=== PATIENT | female | born 1965 | race Caucasian/White ===

== ENCOUNTER → 2018-08-13 | Outpatient (CLI) | payer OTHER ==
[~2018-08-13] MED LIST: Aspirin EC81 MG PO; Flonase 0.05% N16 GM; IBUP600 PO; LORCET 5-325 M1 EACH PO; Multivitamin W1 EAC5; Norco 5-325 Ta1 EACH PO; TROSPIUM CHLORI20 MG PO; Zanaflex4 MG PO
[2018-08-13 13:05] LABS: Bilirubin, Urine Neg (Neg); Blood, Urine 1+ (Neg); Glucose Qualitative, Urine Neg (Neg); Ketones, Urine Neg (Neg); Leukocyte Esterase, Urine 3+ (Neg); Nitrite, Urine Neg (Neg); Protein, Urine 1+ (Neg); Urobilinogen, Urine NORM (Normal)
[2018-08-13 14:52] LABS: Appearance, Urine Cloudy (Clear); Color, Urine Yellow (P-Yellow)
[2018-08-13 14:59] LABS: Bacteria Mod /hpf; Red Blood Cells, Urine 0-2 /hpf (0-2); Squamous Epithelial Cells Rare /hpf (Few)
== END ==
LOC: LAB SHORT 12:57 → LAB 12:57
PROVIDERS: Nurse Practitioner Family
DX: N39.0 Urinary tract infection, site not specified (principal)
CPT/HCPCS: 81001; 87077; 87086; 87186

== ENCOUNTER 2018-10-09 15:49 | Emergency (ER) | payer OTHER ==
[~2018-10-09] VITALS: Ht 170.2 cm; Wt 83.9 kg
[2018-10-09] MEDS ORDERED: Norco 5-325 Ta1 EACH PO (19:41)
== END 2018-10-09 19:56 | disposition home or self-care (01) ==
LOC: ER 15:49
DX: S30.0XXA Contusion of lower back and pelvis, initial encounter (principal); W17.89XA Other fall from one level to another, initial encounter
CPT/HCPCS: 72100; 72220; 96372; 99283-25; A9270; J1170

== ENCOUNTER 2018-11-14 08:10 | Observation (INO) | payer OTHER ==
[~2018-11-14] VITALS: Ht 170.2 cm; Wt 100.0 kg
[~2018-11-14 08:10] MED LIST changes: -Aspirin EC81 MG PO; -Flonase 0.05% N16 GM; -IBUP600 PO; -LORCET 5-325 M1 EACH PO; -Multivitamin W1 EAC5; -TROSPIUM CHLORI20 MG PO; -Zanaflex4 MG PO
[2018-11-14] MEDS ORDERED: IBUP600 PO (08:23)
[2018-11-14] MEDS ORDERED: Multivitamin W1 EAC5 (08:24)
[2018-11-14 08:57] LABS: BASOPHILS ABSOLUTE AUTO 0.04 K/mm3 (0.00-0.23); BASOPHILS PERCENT AUTO 1 % (0-2); EOSINOPHILS ABSOLUTE AUTO 0.19 K/mm3 (0.00-0.68); EOSINOPHILS PERCENT AUTO 4 % (0-6); Hemoglobin 12.2 g/dL (11.5-16.0); IMMATURE GRAN ABSOLUTE AUTO 0.01 K/mm3 (0.00-0.10); IMMATURE GRAN PERCENT AUTO 0 % (0-1); LYMPHOCYTES ABSOLUTE AUTO 1.36 K/mm3 (0.84-5.20); LYMPHOCYTES PERCENT AUTO 27 % (21-46); MONOCYTES ABSOLUTE AUTO 0.58 K/mm3 (0.16-1.47); MONOCYTES PERCENT AUTO 12 % (4-13); Mean Corpuscular HGB 28.5 pg (26.0-34.0); Mean Corpuscular HGB Conc 32.1 g/dL (31.5-36.5); Mean Corpuscular Volume 89 fL (80-100); Mean Platelet Volume 9.6 fL (9.1-12.4); NEUTROPHILS ABSOLUTE AUTO 2.85 K/mm3 (1.96-9.15); NEUTROPHILS PERCENT AUTO 57 % (41-73); Platelet Count 195 K/mm3 (150-400); RDW Coefficient Variation 12.5 % (11.7-14.2); RDW Standard Deviation 40.6 fL (35.1-46.3); Red Blood Cell Count 4.28 M/mm3 (3.80-5.20); White Blood Cell Count 5.03 K/mm3 (4.00-11.30)
[2018-11-14 09:18] LABS: Alanine Aminotransfer (ALT/SGP 22 U/L (12-78); Albumin, Blood 3.5 g/dL (3.4-5.0); Albumin/Globulin Ratio 1.2 (0.8-1.8); Alk Phos 69 U/L (50-136); Anion Gap 6 mmol/L (6-16); Aspartate Aminotrans (AST/SGOT 20 U/L (12-37); Bilirubin, Total 0.3 mg/dL (0.1-1.0); Blood Urea Nitrogen 18 mg/dL (8-24); Bun/Creatinine Ratio 26.1 (12.0-20.0); CO2, Blood 25 mmol/L (21-32); Calcium, Blood 8.5 mg/dL (8.5-10.1); Chloride, Blood 112 mmol/L (98-108); Creatinine, Blood 0.69 mg/dL (0.40-1.00); Glomerular Filtration Rate >60 (60-); Glucose, Blood 91 mg/dL (70-99); Potassium, Blood 4.2 mmol/L (3.5-5.5); Sodium, Blood 143 mmol/L (136-145); Total Protein, Blood 6.5 g/dL (6.4-8.2); Troponin I <0.015 ng/mL (0.000-0.040)
[2018-11-14] MEDS ORDERED: TROSPIUM CHLORI20 MG PO (11:44)
[2018-11-14] MEDS ORDERED: Zanaflex4 MG PO (11:45)
[2018-11-14] MEDS ORDERED: LORCET 5-325 M1 EACH PO (11:46)
[2018-11-14] MEDS ORDERED: Aspirin EC81 MG PO (11:46)
--- NOTE | 2018-11-14 13:19 | NUR ---
ADMIT PT REPORT RECIEVED FROM KAMRON SOLORZANO IN ER. PT ARRIVED VIA GURNEY ACCOMPANIED BY FAMILY. PT ALERT, SMILING. STILL COMPLAINING OF LEFT JAW PAIN. HER ARM AND CHEST PAIN HAVE RESOLVED AFTER NITROGLYCERIN BUT HER JAW PAIN THAT WRAPS AROUND HER EAR HASN'T RESOLVED YET. PT HAS A BRUISED TAIL BONE FROM A FALL. TOOK AN EGG CRATE AND DOUBLED IT OVER FOR HER. WRAPPED THAT FOAM PAD IN A FITTED SHEET. SHE LIKED IT ALOT. MEDICATED WITH NORCO X1. PT TAKED NORCO AT HOME. PROVIDED PT WITH CRACKERS AND CHEESE FOR A SNACK WHILE AWAITING A LUNCH. CONTINUE POT.
--- NOTE | 2018-11-14 14:06 | NUR ---
ECHOCARDIOGRAM COMPLETE
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
--- NOTE | 2018-11-15 05:24 | NUR ---
SHIFT SUMMARY PATIENT PLEASENT AND COOPERATIVE THROUGHOUT THE NIGHT. PATIENT MEDICATED FOR TAIL BONE, BACK OF LEFT SHOULDER, AND HEADACHE PAIN PER EMAR. HEATING PAD USED FOR PAIN RELIEF WELL. NO COMPLAINTS OF JAW PAIN NOTED THROUGHOUT THE NIGHT. PATIENT SBA THROUGHOUT THE NIGHT. PATIENT APPEARED TO SLEEP WELL LAST NIGHT. PATIENT CURRENTLY AWAKE AND RESTING IN BED BUT DENIES ANY NEEDS. WILL CONTINUE TO MONITOR PATIENT AND REPORT TO ONCOMING RN.
--- NOTE | 2018-11-15 12:37 | NUR ---
NOTE PT UP WALKING IN THE HALLWAY. SR. NO JAW AND LEFT ARM PAIN TODAY. KPAD EFFECTIVE FOR PAIN CONTROL. 2 DAY STRESS TEST ARRANGED. NPO UNTIL 1430. PICTURES AT 1600 TODAY. PT AGREEABLE TO TEST. HERE. TALKED WITH PT/ ABOUT ECHO RESULTS, STRESS MANAGEMENT. PT YELLING AT PT BEHIND CLOSED DOOR THAT SHE NEEDS TO DESTRESS. CARE MANAGEMENT HAS MET WITH PT ALONG WITH [employer] THIS MORNING. CONTINUE POT.
--- NOTE | 2018-11-15 12:40 | NUR ---
Upon receiving a spiritual care referral, I visited patient. Patient openly shares about the many stressors in her life. Patient lives with a high level of demand and chaos that fills her life. We went down the list of healthy activities that fill and refresh her life and discussed the importance of prioritizing margin in her schedule to make room for these activities. We also talk about ways to cut out a certain amount of the demand. I encouraged self-care and encouraged getting back to the spiritual component that has had value to her in the past. Patient responded well and showed signs of reduced stress and voiced appreciation for my visit.
--- NOTE | 2018-11-15 17:48 | NUR ---
EVENING NOTE PT ALERT AND ORIENTED. SR. PT HAS DENIED JAW PAIN, LEFT ARM BACK OR UPPER BACK PAIN. SHE HAS HAD NAUSEA AFTER EATING WHICH, ACCORDING TO HER, IS A FREQUENT OCCURANCE AT HOME. ZOFRAN EFFECTIVE. VSS. TOLERATED THE STRESS TEST TODAY WELL. COFFEE RELIEVED HER HEADACHE. PT AWARE OF NOT BEING ABLE TO DRINK ANY CAFFEINE CONTAINING ITEMS AFTER 0200 D/T THE NEXT PART OF THE STRESS. H/L. RA. PT TOOK A SHOWER. NO RETURN OF HER PAIN. CONTINUE POT.
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
--- NOTE | 2018-11-16 18:30 | NUR ---
SHIFT SUMMARY PT A&Ox4, CALM AND COOPERATIVE WITH CARE. PT RESTING IN BED DURING SHIFT. UP IND IN ROOM AND WALKING IN HALLS WITH FAMILY. PT REPORTS NO PAIN T/O SHIFT, DENIES SOB. SPO02 >94% ON RA. PT REPROTS [place] AFTER LUNCH, MEDICATED x1 WITH ZOFRAN WITH POSITIVE RESULTS. SECOND PART OF STRESS TEST COMPLETED DURING SHIFT, PT REPORTS HEAVINESS IN CHEST AND SLIGHT SOB WITH MEDICATIONS. ABNORMAL STRESS TEST RESULTS, CARDIOLOGY CONSULTS FOR TOMORROW AM. PT BECAME TEARFUL AFTER DR SUTTON GAVE RESULTS OF STRESS TEST. THERAPUTIC LISTEN AND COMMUNICATION USED. VSS. NO OTHER ACUTE CHANGES NOTED DURING SHIFT. WILL CONTINUE TO MONITOR UNTIL REPORT GIVEN TO ONCOMING RN.
--- NOTE | 2018-11-17 05:45 | NUR ---
PATIENT DENIES ANY CHEST PAIN THROUGH NIGHT. PATIENT COMPLAINS OF A BROKEN TAIL BONE THAT IS PAINFUL, MEDICATED TWICE WITH PRN NORCO. PATIENT INDEPENDENT IN ROOM. PATIENT CALL LIGHT WITH IN REACH AND USES APPROPRIATELY.
[2018-11-17] MEDS ORDERED: Flonase 0.05% N16 GM (10:06)
--- NOTE | 2018-11-17 10:58 | NUR ---
DISCHARGE SUMMARY PT A&Ox4. CALM AND COOPERATIVE WITH CARE. PT RESTING IN BED DURING SHIFT. IND IN ROOM. PT REPORT BUTTOCKS PAIN, MEDICATED x1 WITH NORCO WITH POSITIVE RESULTS. PT DENIES JAW, NECK AND CHEST PAIN/PRESSURE T/O SHIFT. PT DENIES SOB, SPO2 >94% ON RA, BREATHING EVEN AND UNLABORED. PT REPROTS NAUSEA AFTER BREAKFAST, MEDICATED x1 WITH ZOFRAN, NO EMESIS NOTED. TELE SR IN 60-70'S. DR TANNER TO BEDSIDE THIS AM. VSS. NO OTHER ACUTE CHANGES NOTED DURING SHIFT. PT AND FAMILY EDUCATED ON DISCHARGE INSTRUCTIONS, MEDICATIONS AND FOLLOW UP APPOINTMENT. ATTEMPTED TO MAKE APPOINTMENT WITH PCP OFFICE, NOTIFIED PT TO CALL LATER TODAY. CARDIOLOGY APPT SET UP. NO NEW PRESCRIPTIONS MEDICATIONS. PT LEFT ROOM ON FOOT AT 1038, PT STABLE UPON DISCHARGE. FAMILY AND PT EDUCATED ON STRESS, AND STRESS MANAGEMENT.
== END 2018-11-17 10:40 | disposition home or self-care (01) ==
LOC: ER 08:10 → PCU 08:11
PROVIDERS: Emergency Medicine; ADMIT Internal Medicine
DX: I20.0 Unstable angina (principal); E11.9 Type 2 diabetes mellitus without complications; M19.90 Unspecified osteoarthritis, unspecified site; S39.92XD Unspecified injury of lower back, subsequent encounter; J31.0 Chronic rhinitis; E66.9 Obesity, unspecified; Z79.899 Other long term (current) drug therapy; Z79.82 Long term (current) use of aspirin; Z79.891 Long term (current) use of opiate analgesic; Z68.26 Body mass index [BMI] 26.0-26.9, adult
CPT/HCPCS: 36415; 71046; 78452; 80053; 83690; 83880; 84484; 85025; 93005; 93010; 93017; 93306; 96372; 96374; 96376; 99284-25; A9270-GY; A9500; G0378; J0706; J1650; J2405; J2785; J7512

== ENCOUNTER 2019-01-07 06:47 | Day surgery (SDC) | payer OTHER ==
[~2019-01-07] VITALS: Ht 167.6 cm; Wt 95.0 kg
[~2019-01-07 06:47] MED LIST changes: +Aspirin EC81 MG PO; +Flonase 0.05% N16 GM; +IBUP600 PO; +LORCET 5-325 M1 EACH PO; +Multivitamin W1 EAC5; +TROSPIUM CHLORI20 MG PO; +Zanaflex4 MG PO
[2019-01-07] MEDS ORDERED: ESCI10 PO (07:38)
--- NOTE | 2019-01-07 08:44 | NUR ---
PT RETURNED TO RECOVERY ROOM IN RECLINER. RIGHT RADIAL TR BAND SITE SOFT NON-TENDER WITH NO HEMATOMA AND NO PULSATILE BLEEDING. PT DENIES CP. PT DRINKING COFFEE. CALL LIGHT IN REACH. PT'S FAMILY IN ROOM.
--- NOTE | 2019-01-07 09:58 | NUR ---
PT C/O 07/02 RIGHT WRIST SORENESS.
--- NOTE | 2019-01-07 10:43 | NUR ---
5 CC OF AIR REMOVED FROM RIGHT TR BAND; REBLEED NOTED AND 2CC OF AIR PLACED BACK INTO BAND TO STOP BLEEDING. PT AMBULATED TO BR TO VOID.
--- NOTE | 2019-01-07 10:46 | NUR ---
DISCHARGE INSTRUCTIONS REVIEWED ALL QUESTIONS ANSWERED.
--- NOTE | 2019-01-07 11:08 | NUR ---
7 CC OF AIR REMOVED OVER 10 MIN FROM NOW DELFATED RIGHT TR BAND. NO PULSATILE BLEEDING AND NO HEMATOMA.
--- NOTE | 2019-01-07 12:02 | NUR ---
DEFLATED RIGHT RADIAL TR BAND REMOVED AND POLYMEM PLACED OVER RIGHT RADIAL SITE; RIGHT RADIAL SITE SOFT WITH NO HEMATOMA AND NO PULSATILE BLEEDING. RIGHT WRIST BOARD PLACED. PT AMBULATED TO BR TO VOID. 20 G IV REMOVED FROM LEFT HAND WITH INTACT CANNUAL. RIGHT ARM SLING PLACED. PT ESCORTED OUT VIA WHEELCHAIR ESCORT.
== END 2019-01-07 12:25 | disposition home or self-care (01) ==
LOC: MHTC 06:47
PROC: 4A023N7 Measurement of Cardiac Sampling and Pressure, Left Heart, Percutaneous Approach (ICD-10-PCS; principal; 2019-01-07)
PROC: B201YZZ Plain Radiography of Multiple Coronary Arteries using Other Contrast (ICD-10-PCS; principal; 2019-01-07)
PROC: B205YZZ Plain Radiography of Left Heart using Other Contrast (ICD-10-PCS; principal; 2019-01-07)
DX: R07.9 Chest pain, unspecified (principal); R06.09 Other forms of dyspnea; R00.2 Palpitations; R94.39 Abnormal result of other cardiovascular function study; E11.9 Type 2 diabetes mellitus without complications; G89.29 Other chronic pain; I87.2 Venous insufficiency (chronic) (peripheral); G43.909 Migraine, unspecified, not intractable, without status migrainosus; F32.9 Major depressive disorder, single episode, unspecified; F41.9 Anxiety disorder, unspecified; R03.0 Elevated blood-pressure reading, without diagnosis of hypertension; R32 Unspecified urinary incontinence; J31.0 Chronic rhinitis; Z87.891 Personal history of nicotine dependence; Z79.899 Other long term (current) drug therapy; Z79.82 Long term (current) use of aspirin
CPT/HCPCS: 93458; 99152; 99153; A9270; C1769; C1894; J1644; J2250; J3010; J7030; Q9967

== ENCOUNTER 2019-02-09 09:45 | Day surgery (SDC) | payer OTHER ==
[~2019-02-09 09:45] MED LIST changes: +ESCI10 PO
== END 2019-02-09 22:49 | disposition home or self-care (01) ==
LOC: MOI MAM 09:45
DX: D05.12 Intraductal carcinoma in situ of left breast (principal)
CPT/HCPCS: 19081; 88305

== ENCOUNTER 2019-03-16 08:43 | Day surgery (SDC) | payer OTHER | END 2019-03-16 22:35 | disposition home or self-care (01) | LOC: MOI MAM 08:43 | DX: D05.12 Intraductal carcinoma in situ of left breast (principal) | CPT/HCPCS: 19281 ==

== ENCOUNTER → 2019-08-09 | Outpatient (CLI) | payer OTHER | END | disposition home or self-care (01) | LOC: LAB SHORT 12:51 → LAB UCHC 12:51 | DX: R35.0 Frequency of micturition (principal) | CPT/HCPCS: 87077; 87086; 87186 ==

== ENCOUNTER → 2019-09-15 | Outpatient (CLI) | payer OTHER ==
[2019-09-15 11:37] LABS: Appearance, Urine Clear (Clear); Bilirubin, Urine Neg (Neg); Blood, Urine Neg (Neg); Color, Urine Yellow (P-Yellow); Glucose Qualitative, Urine Neg (Neg); Ketones, Urine Neg (Neg); Leukocyte Esterase, Urine Neg (Neg); Nitrite, Urine Neg (Neg); Protein, Urine Neg (Neg); Urobilinogen, Urine NORM (Normal)
== END ==
LOC: LAB FUT 09-09 11:50 → LAB SHORT 10:52 → LAB 10:52
PROVIDERS: Obstetrics & Gynecology Female Pelvic Medicine and Reconstructive Surgery
DX: N39.0 Urinary tract infection, site not specified (principal)
CPT/HCPCS: 81003; 87086

== ENCOUNTER 2019-11-02 02:13 | Emergency (ER) | payer OTHER ==
[~2019-11-02] VITALS: Ht 167.6 cm; Wt 90.7 kg
[2019-11-02 03:44] LABS: BASOPHILS ABSOLUTE AUTO 0.05 K/mm3 (0.00-0.23); BASOPHILS PERCENT AUTO 0 % (0-2); EOSINOPHILS ABSOLUTE AUTO 0.19 K/mm3 (0.00-0.68); EOSINOPHILS PERCENT AUTO 2 % (0-6); Hematocrit 42.1 % (33.0-51.0); Hemoglobin 13.3 g/dL (11.5-16.0); IMMATURE GRAN ABSOLUTE AUTO 0.05 K/mm3 (0.00-0.10); IMMATURE GRAN PERCENT AUTO 0 % (0-1); LYMPHOCYTES ABSOLUTE AUTO 1.25 K/mm3 (0.84-5.20); LYMPHOCYTES PERCENT AUTO 11 % (21-46); MONOCYTES ABSOLUTE AUTO 0.83 K/mm3 (0.16-1.47); MONOCYTES PERCENT AUTO 7 % (4-13); Mean Corpuscular HGB 27.9 pg (26.0-34.0); Mean Corpuscular HGB Conc 31.6 g/dL (31.5-36.5); Mean Corpuscular Volume 88 fL (80-100); Mean Platelet Volume 9.4 fL (9.1-12.4); NEUTROPHILS PERCENT AUTO 80 % (41-73); Platelet Count 263 K/mm3 (150-400); RDW Standard Deviation 42.4 fL (35.1-46.3); Red Blood Cell Count 4.77 M/mm3 (3.80-5.20); White Blood Cell Count 11.67 K/mm3 (4.00-11.30)
[2019-11-02 04:03] LABS: Alanine Aminotransfer (ALT/SGP 34 U/L (12-78); Albumin, Blood 3.9 g/dL (3.4-5.0); Alk Phos 101 U/L (50-136); Anion Gap 7 mmol/L (6-16); Aspartate Aminotrans (AST/SGOT 30 U/L (12-37); Bilirubin, Total 0.3 mg/dL (0.1-1.0); Blood Urea Nitrogen 14 mg/dL (8-24); Bun/Creatinine Ratio 16.1 (12.0-20.0); CO2, Blood 24 mmol/L (21-32); Calcium, Blood 9.6 mg/dL (8.5-10.1); Chloride, Blood 111 mmol/L (98-108); Creatinine, Blood 0.87 mg/dL (0.40-1.00); Globulin, Blood 3.9 g/dL (2.2-4.0); Glomerular Filtration Rate >60 (60-); Glucose, Blood 149 mg/dL (70-99); Potassium, Blood 3.8 mmol/L (3.5-5.5); Sodium, Blood 142 mmol/L (136-145); Total Protein, Blood 7.8 g/dL (6.4-8.2)
[2019-11-02] MEDS ORDERED: LETR2.5 PO (06:12)
[2019-11-02 06:13] LABS: Troponin I <0.015 ng/mL (0.000-0.040)
[2019-11-02] MEDS ORDERED: ONDA4ODT MM (07:59)
== END 2019-11-02 08:15 | disposition home or self-care (01) ==
LOC: ER 02:13
PROVIDERS: Student in an Organized Health Care Education/Training Program
DX: R10.13 Epigastric pain (principal); R11.2 Nausea with vomiting, unspecified; R19.7 Diarrhea, unspecified; Z87.19 Personal history of other diseases of the digestive system; Z79.899 Other long term (current) drug therapy
CPT/HCPCS: 36415; 74177; 80053; 83690; 84484; 85025; 93005; 93010; 96361; 96374-59; 99284-25; J2405; J7030; Q9967

== ENCOUNTER → 2020-03-13 | Outpatient (CLI) | payer OTHER ==
[~2020-03-13] MED LIST changes: +LETR2.5 PO; +ONDA4ODT MM
== END | disposition home or self-care (01) ==
LOC: LAB 16:30 → LAB SHORT 16:30
DX: N39.0 Urinary tract infection, site not specified (principal)
CPT/HCPCS: 87077; 87086; 87186

== ENCOUNTER 2021-03-07 10:11 | Emergency (ER) | payer OTHER ==
[~2021-03-07] VITALS: Ht 167.6 cm; Wt 86.2 kg
[2021-03-07 11:06] LABS: BASOPHILS ABSOLUTE AUTO 0.07 K/mm3 (0.00-0.23); BASOPHILS PERCENT AUTO 1 % (0-2); EOSINOPHILS ABSOLUTE AUTO 0.21 K/mm3 (0.00-0.68); EOSINOPHILS PERCENT AUTO 3 % (0-6); Hematocrit 39.8 % (33.0-51.0); Hemoglobin 12.4 g/dL (11.5-16.0); IMMATURE GRAN ABSOLUTE AUTO 0.02 K/mm3 (0.00-0.10); IMMATURE GRAN PERCENT AUTO 0 % (0-1); LYMPHOCYTES ABSOLUTE AUTO 2.02 K/mm3 (0.84-5.20); LYMPHOCYTES PERCENT AUTO 30 % (21-46); MONOCYTES ABSOLUTE AUTO 0.73 K/mm3 (0.16-1.47); MONOCYTES PERCENT AUTO 11 % (4-13); Mean Corpuscular HGB 27.7 pg (26.0-34.0); Mean Corpuscular HGB Conc 31.2 g/dL (31.5-36.5); Mean Corpuscular Volume 89 fL (80-100); Mean Platelet Volume 9.8 fL (9.1-12.4); NEUTROPHILS ABSOLUTE AUTO 3.64 K/mm3 (1.96-9.15); NEUTROPHILS PERCENT AUTO 55 % (41-73); Platelet Count 204 K/mm3 (150-400); RDW Coefficient Variation 13.4 % (11.7-14.2); RDW Standard Deviation 43.6 fL (35.1-46.3); Red Blood Cell Count 4.47 M/mm3 (3.80-5.20); White Blood Cell Count 6.69 K/mm3 (4.00-11.30)
[2021-03-07 11:25] LABS: Alanine Aminotransfer (ALT/SGP 47 U/L (12-78); Albumin, Blood 3.7 g/dL (3.4-5.0); Albumin/Globulin Ratio 1.2 (0.8-1.8); Alk Phos 90 U/L (50-136); Anion Gap 5 mmol/L (6-16); Aspartate Aminotrans (AST/SGOT 41 U/L (12-37); Bilirubin, Total 0.3 mg/dL (0.1-1.0); Blood Urea Nitrogen 16 mg/dL (8-24); Bun/Creatinine Ratio 21.7 (12.0-20.0); CO2, Blood 28 mmol/L (21-32); Calcium, Blood 8.5 mg/dL (8.5-10.1); Chloride, Blood 108 mmol/L (98-108); Creatinine, Blood 0.74 mg/dL (0.40-1.00); Glomerular Filtration Rate >60 (60-); Glucose, Blood 121 mg/dL (70-99); Potassium, Blood 3.9 mmol/L (3.5-5.5); Sodium, Blood 141 mmol/L (136-145); Total Protein, Blood 6.7 g/dL (6.4-8.2); Troponin I <0.015 ng/mL (0.000-0.040)
[2021-03-07] MEDS ORDERED: OXYB5ER (12:52)
[2021-03-07 13:36] LABS: Source, Urine Clean Catch
[2021-03-07 13:42] LABS: Appearance, Urine Hazy (Clear); Bilirubin, Urine Neg (Neg); Blood, Urine Neg (Neg); Color, Urine Yellow (P-Yellow); Glucose Qualitative, Urine Neg (Neg); Ketones, Urine Neg (Neg); Leukocyte Esterase, Urine Neg (Neg); Nitrite, Urine Neg (Neg); Protein, Urine Neg (Neg); Urobilinogen, Urine NORM (Normal)
[2021-03-07] MEDS ORDERED: LIDO700A20 TOP (13:50)
[2021-03-07 14:02] LABS: Bacteria Rare /hpf; Red Blood Cells, Urine 0-2 /hpf (0-2); Squamous Epithelial Cells Rare /hpf (Few); White Blood Cells, Urine 0-2 /hpf (0-5)
== END 2021-03-07 14:44 | disposition home or self-care (01) ==
LOC: ER 10:11
PROVIDERS: Physician Assistant
DX: S39.012A Strain of muscle, fascia and tendon of lower back, initial encounter (principal); R06.02 Shortness of breath; Z79.899 Other long term (current) drug therapy; X50.0XXA Overexertion from strenuous movement or load, initial encounter
CPT/HCPCS: 71046; 80053; 81001; 83690; 84484; 85025; 93005; 93010; 99284-25; A9270

== ENCOUNTER → 2022-01-14 | Outpatient (CLI) | payer OTHER ==
[~2022-01-14] MED LIST changes: +LIDO700A20 TOP; +OXYB5ER
== END | disposition home or self-care (01) ==
LOC: LAB SHORT 17:50 → LAB 17:50
DX: N39.0 Urinary tract infection, site not specified (principal)
CPT/HCPCS: 87086

== ENCOUNTER → 2022-01-31 | Outpatient (CLI) | payer OTHER | END | disposition home or self-care (01) | LOC: LAB 11:39 → LAB SHORT 11:39 | DX: R35.0 Frequency of micturition (principal) | CPT/HCPCS: 87077; 87086; 87186 ==

== ENCOUNTER → 2022-06-30 | Outpatient (CLI) | payer OTHER ==
[2022-06-30 16:01] LABS: Albumin, Blood 3.7 g/dL (3.4-5.0); Albumin/Globulin Ratio 1.4 (0.8-1.8); Bilirubin, Total 0.4 mg/dL (0.1-1.0); Bun/Creatinine Ratio 23.9 (12.0-20.0); Calcium, Blood 8.6 mg/dL (8.5-10.1); Creatinine, Blood 0.71 mg/dL (0.40-1.00); Globulin, Blood 2.7 g/dL (2.2-4.0); Percent Saturation 23.6 % (15.0-50.0); Phosphorus, Blood 4.3 mg/dL (2.5-4.9); Potassium, Blood 4.5 mmol/L (3.5-5.5); Thyroid Stimulating Hormone 1.9 uIU/mL (0.360-4.800); Thyroxine (T4) 8.3 ug/dL (4.8-13.9); Total Protein, Blood 6.4 g/dL (6.4-8.2)
== END | disposition home or self-care (01) ==
LOC: LAB 09:57 → LAB SHORT 09:57
PROVIDERS: Internal Medicine Hematology & Oncology
DX: E03.9 Hypothyroidism, unspecified (principal); D64.9 Anemia, unspecified; R73.03 Prediabetes
CPT/HCPCS: 80053; 82728; 83540; 83550; 84100; 84436; 84443

== ENCOUNTER → 2022-10-09 | Outpatient (CLI) | payer OTHER ==
[2022-10-09 15:00] LABS: Bun/Creatinine Ratio 21.9 (12.0-20.0); Creatinine, Blood 0.69 mg/dL (0.40-1.00); Potassium, Blood 4.3 mmol/L (3.5-5.5)
== END | disposition home or self-care (01) ==
LOC: LAB SHORT 12:31 → LAB 12:31
PROVIDERS: Nurse Practitioner Family
DX: I10 Essential (primary) hypertension (principal)
CPT/HCPCS: 80048

== ENCOUNTER → 2022-12-15 | Outpatient (CLI) | payer OTHER | END | disposition home or self-care (01) | LOC: LAB SHORT 12:09 → LAB 12:09 | DX: R35.0 Frequency of micturition (principal) | CPT/HCPCS: 87077; 87086; 87186 ==

== ENCOUNTER → 2022-12-31 | Outpatient (CLI) | payer OTHER ==
[2022-12-31 19:08] LABS: Albumin, Blood 3.9 g/dL (3.4-5.0); Albumin/Globulin Ratio 1.3 (0.8-1.8); Bilirubin, Total 0.3 mg/dL (0.1-1.0); Bun/Creatinine Ratio 18.7 (12.0-20.0); Calcium, Blood 9.3 mg/dL (8.5-10.1); Creatinine, Blood 0.7 mg/dL (0.40-1.00); Globulin, Blood 2.9 g/dL (2.2-4.0); Phosphorus, Blood 4.4 mg/dL (2.5-4.9); Potassium, Blood 4.5 mmol/L (3.5-5.5); Total Protein, Blood 6.8 g/dL (6.4-8.2)
== END | disposition home or self-care (01) ==
LOC: LAB 17:08 → LAB SHORT 17:08
PROVIDERS: Internal Medicine Hematology & Oncology
DX: C50.919 Malignant neoplasm of unspecified site of unspecified female breast (principal); D64.9 Anemia, unspecified; R73.03 Prediabetes
CPT/HCPCS: 80053; 84100; 86300

== ENCOUNTER 2023-01-20 17:20 | Emergency (ER) | payer OTHER ==
[~2023-01-20] VITALS: Ht 167.6 cm; Wt 90.7 kg
[2023-01-20 17:28] VITALS: BP 115/79
== END 2023-01-20 20:28 | disposition home or self-care (01) ==
LOC: ER 17:20
DX: S46.011A Strain of muscle(s) and tendon(s) of the rotator cuff of right shoulder, initial encounter (principal); W19.XXXA Unspecified fall, initial encounter; Z87.891 Personal history of nicotine dependence
CPT/HCPCS: 73030; 99283-25; A9270

== ENCOUNTER 2023-04-13 08:31 | Day surgery (SDC) | payer OTHER ==
[~2023-04-13] VITALS: Ht 167.6 cm; Wt 93.3 kg
[~2023-04-13 08:31] MED LIST changes: +Dexamethasone Sod Phos 10 MG/ML 1ML VIAL ONE; +EPINEPhrine HCl 1 MG/ML 1ML Amp ONE; +FentaNYL Citrate 50 MCG/ML 2 ML Injection ONE; +Midazolam HCl 1MG / ML 2ML Vial ONE; +Ondansetron HCl 2 MG / ML 2ML Vial ONE; +Rocuronium Bromide 10 MG/ML 5ML Injection IV ONE; +Ropivacaine 0.5% HCl/Pf 5 MG/ML 20ML VIAL ONE; +Sugammadex Sodium 200 MG/2ML SDV (100 MG/ML) ONE; +propofoL 20 ML IV ONE
[2023-04-13] MEDS ORDERED: Bupivacaine 0.5% HCl 5 MG/ML 30MLVIAL ONE (08:32)
[2023-04-13] MEDS ORDERED: Lidocaine HCl 4% 5 ML SDA ONE (08:49)
[2023-04-13] MEDS ORDERED: ALBU90OI (09:06)
[2023-04-13] MEDS ORDERED: AMLO10 (09:07)
[2023-04-13] MEDS ORDERED: Amitriptyline H10 MG (09:07)
[2023-04-13] MEDS ORDERED: Norco 10-325 T1 EACH (09:08)
[2023-04-13] MEDS ORDERED: SUMA25 (09:09)
[2023-04-13] MEDS ORDERED: LETR2.5 (09:09)
[2023-04-13] MEDS ORDERED: CefTRIAXone Sodium 2,000 MG in NS 100 ML IV SCH (09:10)
[2023-04-13] MEDS ORDERED: Inderal40 MG (09:10)
[2023-04-13] MEDS ORDERED: ONDA4 (09:12)
[2023-04-13] MEDS ORDERED: VENL37.5 (09:12)
[2023-04-13] MEDS ORDERED: Lactated Ringer's 1,000 ML IV ONE ×2 (09:30→09:56)
[2023-04-13] MEDS ORDERED: ePHEDrine Sulfate 50 MG/ML 1ML Injection ONE (10:45)
[2023-04-13] MEDS ORDERED: EPINEPhrine HCl 1 MG/ML IV XX ONE ×2 (10:46)
[2023-04-13] MEDS ORDERED: Glycopyrrolate 0.2 MG/ML 5ML VIAL ONE (10:50)
--- NOTE | 2023-04-13 10:56 | NUR ---
04/13/23 1056 Beatriz Bradford 1MG EPI ADDED TO FIRST BAG OF LR FOR IRRIGATION AT OPSITE. ROPIVACAINE 0.5% 10MLS MIXED AND VERIFIED WITH EPI 0.05ML (1MG/ML) TO MAKE ROPIVACAINE 0.5% W/ EPI 1:200,000 FOR INJECTION AT OPSITE.
[2023-04-13] MEDS ORDERED: FentaNYL Citrate 50 MCG/ML 2 ML Injection ONE (13:01)
[2023-04-13 13:34] VITALS: BP 128/99
[2023-04-13] MEDS ORDERED: OxyCODONE 5 mg/Acetamin 325 mg TABLET ONE (13:38)
== END 2023-04-13 14:19 | disposition home or self-care (01) ==
LOC: ORSCSDS 08:31
PROVIDERS: Orthopaedic Surgery
PROC: 0RNJ4ZZ Release Right Shoulder Joint, Percutaneous Endoscopic Approach (ICD-10-PCS; principal; 2023-04-13 10:00)
DX: M75.121 Complete rotator cuff tear or rupture of right shoulder, not specified as traumatic (principal); M75.41 Impingement syndrome of right shoulder; I10 Essential (primary) hypertension; J44.9 Chronic obstructive pulmonary disease, unspecified; F41.9 Anxiety disorder, unspecified; F32.A Depression, unspecified; Z79.899 Other long term (current) drug therapy; E66.9 Obesity, unspecified; Z68.33 Body mass index [BMI] 33.0-33.9, adult; Z87.891 Personal history of nicotine dependence
CPT/HCPCS: 82947; A9270; C1713; J0171; J0696; J1100; J2001; J2250; J2405; J2704; J2795; J3010; J7120

== ENCOUNTER → 2023-06-18 | Outpatient (CLI) | payer OTHER | END | disposition home or self-care (01) | LOC: LAB SHORT 14:03 → LAB 14:03 | DX: Z11.59 Encounter for screening for other viral diseases (principal); F32.9 Major depressive disorder, single episode, unspecified; I10 Essential (primary) hypertension ==

== ENCOUNTER 2023-11-24 18:15 | Emergency (ER) | payer OTHER ==
[~2023-11-24] VITALS: Ht 167.6 cm; Wt 90.7 kg
[~2023-11-24 18:15] MED LIST changes: +ALBU90OI; +AMLO10; +Amitriptyline H10 MG; -Dexamethasone Sod Phos 10 MG/ML 1ML VIAL ONE; -EPINEPhrine HCl 1 MG/ML 1ML Amp ONE; -FentaNYL Citrate 50 MCG/ML 2 ML Injection ONE; +Inderal40 MG; +LETR2.5; -Midazolam HCl 1MG / ML 2ML Vial ONE; +Norco 10-325 T1 EACH; +ONDA4; -Ondansetron HCl 2 MG / ML 2ML Vial ONE; -Rocuronium Bromide 10 MG/ML 5ML Injection IV ONE; -Ropivacaine 0.5% HCl/Pf 5 MG/ML 20ML VIAL ONE; +SUMA25; -Sugammadex Sodium 200 MG/2ML SDV (100 MG/ML) ONE; +VENL37.5; -propofoL 20 ML IV ONE
[2023-11-25 00:50] VITALS: BP 133/79
== END 2023-11-25 00:50 | disposition home or self-care (01) ==
LOC: ER 18:15
DX: S80.11XA Contusion of right lower leg, initial encounter (principal); X58.XXXA Exposure to other specified factors, initial encounter; Z79.899 Other long term (current) drug therapy
CPT/HCPCS: 93971; 99283-25

== ENCOUNTER → 2024-01-29 | Outpatient (CLI) | payer OTHER | LOC: LAB 13:46 → LAB SHORT 13:46 | DX: N39.0 Urinary tract infection, site not specified (principal) | CPT/HCPCS: 87077; 87086; 87186 ==

== ENCOUNTER 2024-05-02 07:53 | Day surgery (SDC) | payer OTHER ==
[2024-05-02] VITALS (16 sets, daily range): BP systolic 106–155; BP diastolic 67–117
[~2024-05-02] VITALS: Ht 170.2 cm; Wt 96.5 kg
[~2024-05-02 07:53] MED LIST changes: +DULO60 PO; +LISI10 PO; +Lactated Ringer's 1,000 ML IV SCH; -Norco 10-325 T1 EACH; +Norco 10-325 T1 EACH PO
--- NOTE | 2024-05-02 09:09 | NUR ---
History, Chart, Medications and Allergies reviewed before start of procedure. Lungs clear T/O to Auscultation. Patient confirms NPO status and agrees with scheduled surgery. Patient states colon prep results clear. Patient States Post-Procedure ride home has been arranged. Pre-Op teaching done. Pt verbalizes understanding.
[2024-05-02] MEDS ORDERED: propofoL 40 ML IV ONE (09:26)
--- NOTE | 2024-05-02 10:35 | NUR ---
Discharge instructions reviewed with patient. Patient verbalizes understanding. Copy given to patient to take home. Patient States Post-Procedure ride home has been arranged. Discharged via wheelchair to private car for ride home.
--- NOTE | 2024-05-03 13:14 | NUR ---
05/03/24 1314 Dominick Aranda CONFIRMED AND REVIEWED H&P, MEDCICATIONS, ALLERGIES, MEDICAL HISTORY, RESPIRATORY HISTORY, VITAL SIGNS, 3-LEAD EKG, CONSENTS, AND PHYSICIAN ORDERS. PATIENT CONFIRMS NPO STATUS AND AGREES WITH SCHEDULED PROCEDURE. MONITOR INTACT WITH CONTINUOUS PULSE OXIMETRY, CAPNOGRAPHY, 3-LEAD EKG, INTERMITTENT BP. SUPPLEMENTAL O2 TO BE TITRATED THROUGHOUT PROCEDURE TO MAINTAIN O2 SATURATION ABOVE 90%. PATIENT DETERMINED TO BE ASA APPROPRIATE FOR PROPOFOL SEDATION PRIOR TO START OF PROCEDURE BY DR. AMBRIZ
== END 2024-05-02 10:33 | disposition home or self-care (01) ==
LOC: ORSCMMR 07:53 → ORD 09:00 → ORSCMMR 10:33
PROVIDERS: Internal Medicine Gastroenterology
PROC: 0DJD8ZZ Inspection of Lower Intestinal Tract, Via Natural or Artificial Opening Endoscopic (ICD-10-PCS; principal; 2024-05-02 09:00)
DX: Z12.11 Encounter for screening for malignant neoplasm of colon (principal); Z86.0100 Personal history of colon polyps, unspecified; I10 Essential (primary) hypertension; F32.A Depression, unspecified; Z79.899 Other long term (current) drug therapy; Z85.3 Personal history of malignant neoplasm of breast; Z87.891 Personal history of nicotine dependence; E66.9 Obesity, unspecified; Z68.35 Body mass index [BMI] 35.0-35.9, adult
CPT/HCPCS: J2704; J7120

== ENCOUNTER 2024-05-31 12:12 | Emergency (ER) | payer OTHER ==
[~2024-05-31] VITALS: Ht 170.2 cm; Wt 90.7 kg
[~2024-05-31 12:12] MED LIST changes: -Lactated Ringer's 1,000 ML IV SCH
[2024-05-31 13:06] LABS: BASOPHILS ABSOLUTE AUTO 0.05 K/mm3 (0.00-0.23); BASOPHILS PERCENT AUTO 1 % (0-2); EOSINOPHILS PERCENT AUTO 4 % (0-6); Hematocrit 40.1 % (33.0-51.0); IMMATURE GRAN ABSOLUTE AUTO 0.03 K/mm3 (0.00-0.10); IMMATURE GRAN PERCENT AUTO 1 % (0-1); LYMPHOCYTES ABSOLUTE AUTO 1.37 K/mm3 (0.84-5.20); LYMPHOCYTES PERCENT AUTO 27 % (21-46); MONOCYTES ABSOLUTE AUTO 0.62 K/mm3 (0.16-1.47); MONOCYTES PERCENT AUTO 12 % (4-13); Mean Corpuscular HGB 29.2 pg (26.0-34.0); Mean Corpuscular HGB Conc 32.4 g/dL (31.5-36.5); Mean Corpuscular Volume 90 fL (80-100); Mean Platelet Volume 9.3 fL (9.1-12.4); NEUTROPHILS ABSOLUTE AUTO 2.75 K/mm3 (1.96-9.15); NEUTROPHILS PERCENT AUTO 55 % (41-73); Platelet Count 222 K/mm3 (150-400); RDW Coefficient Variation 12.8 % (11.7-14.2); RDW Standard Deviation 42.1 fL (35.1-46.3); Red Blood Cell Count 4.45 M/mm3 (3.80-5.20); White Blood Cell Count 5.02 K/mm3 (4.00-11.30)
[2024-05-31 13:37] VITALS: BP 115/86
[2024-05-31 13:42] LABS: Albumin, Blood 3.9 g/dL (3.4-5.0); Albumin/Globulin Ratio 1.4 (0.8-1.8); Bilirubin, Total 0.3 mg/dL (0.1-1.0); Bun/Creatinine Ratio 29.7 (12.0-20.0); Calcium, Blood 9.4 mg/dL (8.5-10.1); Creatinine, Blood 0.71 mg/dL (0.40-1.00); Globulin, Blood 2.7 g/dL (2.2-4.0); Potassium, Blood 4.3 mmol/L (3.5-5.5); Total Protein, Blood 6.6 g/dL (6.4-8.2)
[2024-05-31] MEDS ORDERED: Ketorolac Tromethamine 15mg Vial IV ONE (15:25)
[2024-05-31] MEDS ORDERED: OxyCODONE HCL 5 MG TAB PO ONE (15:25)
== END 2024-05-31 15:37 | disposition home or self-care (01) ==
LOC: ER 12:12
PROVIDERS: Physician Assistant
DX: S00.12XA Contusion of left eyelid and periocular area, initial encounter (principal); W11.XXXA Fall on and from ladder, initial encounter; Z79.899 Other long term (current) drug therapy
CPT/HCPCS: 70450; 80053; 85025; 96374; 99284-25; A9270; J1885

== ENCOUNTER → 2024-06-06 | Outpatient (CLI) | payer OTHER | LOC: LAB 10:42 → LAB SHORT 10:42 | DX: N39.0 Urinary tract infection, site not specified (principal) | CPT/HCPCS: 87077; 87086; 87186 ==

== ENCOUNTER 2024-08-29 06:09 | Day surgery (SDC) | payer OTHER ==
[~2024-08-29] VITALS: Ht 170.2 cm; Wt 96.0 kg
[2024-08-29] MEDS ORDERED: NS 1,000 ML IV ONE ×2 (06:29→07:00)
[2024-08-29] MEDS ORDERED: Tranexamic Acid 100 ML IV ONE ×2 (06:32→10:32)
[2024-08-29] MEDS ORDERED: Midazolam HCl 1MG / ML 2ML Vial ONE (06:40)
[2024-08-29] MEDS ORDERED: Ondansetron HCl 2 MG / ML 2ML Vial ONE ×2 (06:40→10:23)
[2024-08-29] MEDS ORDERED: Dexamethasone Sod Phos 10 MG/ML 1ML VIAL ONE (06:40)
[2024-08-29] MEDS ORDERED: Bupivacaine 0.5% HCl 5 MG/ML 30MLVIAL ONE (06:40)
[2024-08-29] MEDS ORDERED: FentaNYL Citrate 50 MCG/ML 2 ML Injection ONE ×2 (06:40→10:42)
[2024-08-29] MEDS ORDERED: CefTRIAXone Sodium 2,000 MG in NS 100 ML IV SCH (06:40)
[2024-08-29] MEDS ORDERED: Rocuronium Bromide 10 MG/ML 5ML Injection IV ONE (06:49)
[2024-08-29] MEDS ORDERED: HYDROCODONE-AC1 EAC7 PO (06:50)
[2024-08-29] MEDS ORDERED: VENL75ER PO (06:51)
[2024-08-29] MEDS ORDERED: MUPIROCIN2210 (06:51)
[2024-08-29] MEDS ORDERED: Oxybutynin Chlo10 MG PO (06:51)
--- NOTE | 2024-08-29 07:19 | NUR ---
08/29/24 0719 CaneyMaria Del Rosario dasilva [address] PAIGE ALEJANDRE TO NOT CHECK BLOOD SUGAR BECAUSE PATIENT NO LONGER TAKES METFORMIN AND DOES NOT CHECK HER BLOOD SUGAR AT HOME AND HER DOCTOR TOOK HER OFF METFORMIN "A WHILE AGO"
[2024-08-29] MEDS ORDERED: Bupivacaine 0.5% W/EPI 1:200000 SDV 30 ML Vial ONE (07:57)
[2024-08-29] MEDS ORDERED: Phenylephrine HCl 100 MCG/ML-NS 10MLSYR (1MG/10ML) ONE ×2 (07:58→11:13)
[2024-08-29] MEDS ORDERED: ePHEDrine Sulfate 50 MG/ML 1ML Injection ONE (08:21)
[2024-08-29] MEDS ORDERED: Sugammadex Sodium 200 MG/2ML SDV (100 MG/ML) ONE (09:25)
[2024-08-29] MEDS ORDERED: HYDROmorphone HCl/Pf 1MG SYR ONE ×2 (10:35→11:17)
[2024-08-29] MEDS ORDERED: Metoclopramide HCl 5MG / ML 2ML Vial ONE (10:54)
--- NOTE | 2024-08-29 12:00 | NUR ---
08/29/24 1200 Sarika Mendez 1130 - Transfer PACU to Stepdown on RA. VSS. 1155 -[facility] chair. 1157 - Anesthesia check-in at bedside, no concerns
[2024-08-29 12:58] VITALS: BP 114/68
--- NOTE | 2024-08-29 13:01 | NUR ---
08/29/24 1301 Sarika Mendez Pt to PACU, lethargic, VSS w/ 2L NC. Began to co nausea and pain. Repositioning upon request 1130 - 4 Zofran 1048 - 25 fent 1100 - 10 Reglan 1105 - 25 fent Weaned to room air. Nausea resolved, pain still 09/01 1120 - 0.5 Dil Ready for tsfr StepDown.
== END 2024-08-29 12:35 | disposition home or self-care (01) ==
LOC: ORSCSDS 06:09
PROVIDERS: Orthopaedic Surgery
PROC: 0RRJ00Z Replacement of Right Shoulder Joint with Reverse Ball and Socket Synthetic Substitute, Open Approach (ICD-10-PCS; principal; 2024-08-29 07:30)
DX: M19.011 Primary osteoarthritis, right shoulder (principal); M75.121 Complete rotator cuff tear or rupture of right shoulder, not specified as traumatic; I10 Essential (primary) hypertension; F41.9 Anxiety disorder, unspecified; F32.A Depression, unspecified; Z79.899 Other long term (current) drug therapy; E66.9 Obesity, unspecified; Z68.33 Body mass index [BMI] 33.0-33.9, adult; Z87.891 Personal history of nicotine dependence
CPT/HCPCS: 73030; A9270; C1713; C1776; J0696; J1100; J1171; J2250; J2371; J2405; J2704; J2765; J3010; J3373; J7030; J7050

== ENCOUNTER → 2024-09-23 | Outpatient (CLI) | payer OTHER ==
[~2024-09-23] MED LIST changes: +HYDROCODONE-AC1 EAC7 PO; +MUPIROCIN2210; +Oxybutynin Chlo10 MG PO; +VENL75ER PO
== END ==
LOC: LAB SHORT 11:08 → LAB 11:08
DX: N39.0 Urinary tract infection, site not specified (principal)
CPT/HCPCS: 87077; 87086; 87186